=== PATIENT | female | born 1945 | race Caucasian/White ===

== ENCOUNTER 2020-12-23 11:19 | Day surgery (SDC) | payer MEDICARE, BC ==
[~2020-12-23 11:19] MED LIST: Lactated Ringers 1,000 ML IV SCH
[2020-12-23 11:33] VITALS: PULSE 68
[2020-12-23] MEDS ORDERED: fentaNYL 100 MCG/2 ML SDV ONE (12:07)
[2020-12-23] MEDS ORDERED: Propofol 200 MG/20 ML SDV ONE ×3 (12:07→12:36)
[2020-12-23 13:23] VITALS: BP 126/75
--- NOTE | 2020-12-24 08:25 | OR ---
PREOPERATIVE DIAGNOSIS: History of colon polyps. POSTOPERATIVE DIAGNOSIS: History of colon polyps. PROCEDURE PERFORMED: Colonoscopy. COMPLICATIONS: None. SPECIMENS: None. ESTIMATED BLOOD LOSS: None. PROCEDURE IN DETAIL: This was done in the endoscopy suite. Sedation was given per Anesthesia. She was placed in left lateral position. First, a rectal exam was done and was normal. Scope was then introduced into the rectum and slowly advanced through the rectum, sigmoid, descending, transverse, and ascending colon until the cecum was reached. Upon reaching the cecum, scope was slowly withdrawn looking at all mucosal surfaces on the way out. No mucosal abnormalities, lesions, or polyps were noted. FINAL DIAGNOSIS: Normal colonoscopy. BKD: 12/23/2020 13:06:53 MODL: 12/23/2020 20:08:58 /[id number]
== END 2020-12-23 14:20 | disposition home or self-care (01) ==
LOC: VM.SDS 11:19
PROVIDERS: ATTEND Surgery
DX: Z12.11 Encounter for screening for malignant neoplasm of colon (principal); I10 Essential (primary) hypertension; E78.00 Pure hypercholesterolemia, unspecified; K21.9 Gastro-esophageal reflux disease without esophagitis; E03.9 Hypothyroidism, unspecified; Z98.890 Other specified postprocedural states; Z79.899 Other long term (current) drug therapy; Z79.890 Hormone replacement therapy; Z80.0 Family history of malignant neoplasm of digestive organs; Z86.010 Personal history of colon polyps; Z88.8 Allergy status to other drugs, medicaments and biological substances; Z88.5 Allergy status to narcotic agent
CPT/HCPCS: 00811; J2704; J3010; J7120

== ENCOUNTER 2021-02-06 09:11 | Emergency (ER) | payer MEDICARE, BC ==
[2021-02-06 10:01] LABS: CHLORIDE,CL 101 mmol/L (98-107); SODIUM,NA 135 mmol/L (136-145)
--- NOTE | 2021-02-06 10:01 | CR ---
[id number] RAD/RAD Chest PA or AP 1V EXAM: FRONTAL CHEST INDICATION: Shortness of breath and cough. COMPARISON: None. DISCUSSION: Mild bilateral central predominant airspace edema and/or infiltrates. Low lung volumes. Borderline heart size. Tortuous thoracic aorta. IMPRESSION: 1. Mild central infiltrates and/or edema. Renato Gonzalez MD 02/06/21 0959 Thank you for allowing us to participate in the care of your patient.
[2021-02-06 10:02] LABS: ANION GAP 16.5 mmol/L (5-15)
--- NOTE | 2021-02-06 10:15 | EDM.PDOC ---
ED HPI GENERAL MEDICAL PROBLEM - General Chief Complaint: General Stated Complaint: DIZZY AND HARD TO SEE Time Seen by Provider: 02/06/21 09:15 Source of Information: Reports: Patient, Family History Limitations: Reports: No Limitations - History of Present Illness INITIAL COMMENTS - FREE TEXT/NARRATIVE: Patient states over the last couple weeks she does states she has not felt well but here in the last 2 days she has had episodes of nausea with vomiting over the last 3 to 4 days usually 3-4 times a day but she did not vomit any yesterday but a couple times this morning. She states she is having generalized dizziness with generalized weakness kind of a dull headache across the forehead that she rates about 4 out of 10 she also has been having muscle aches and having in termittent episodes of chills. She denies any dizziness with change of position does not feel like the room is spinning she does states that everything feels a little off she is also had some episodes of blurry vision. She says the vision changes last for few seconds and they go away she has had no loss of vision. She denies any chest pain or shortness of breath she has had a cough nonproductive. She has been exposed to secondary Covid but has not been tested. She has a significant history for liver transplant approximately 5 years ago with the [facility] she has had no issues since and currently takes her antirejection meds as scheduled her levels were good as of November Duration: Day(s):, Week(s): Associated Symptoms: Reports: Cough, Fever/Chills, Malaise, Nausea/Vomiting, Weakness. Denies: Confusion, Chest Pain, Shortness of Breath - Related Data Allergies Allergy/AdvReac Type Severity Reaction Status Date / Time benazepril [From Lotensin] Allergy Cough Verified 02/20/16 13:15 irbesartan [From Avapro] Allergy Nausea and Verified 11/06/20 08:28 Vomiting NSAIDS (Non-Steroidal Allergy Other Verified 11/06/20 08:28 Anti-Inflamma oxycodone Allergy Nausea and Verified 02/20/16 13:15 Vomiting Home Meds: Home Meds Acetaminophen [Tylenol] 650 mg PO Q6HR PRN 02/20/16 [History] Aspirin 81 mg PO DAILY 02/20/16 [History] Calcium Citrate/Vitamin D3 [Calcium Citrate - Vit D Tablet] 1 tab PO BID 02/20/16 [History] Losartan Potassium 25 mg PO DAILY 02/20/16 [History] Multivitamin with Minerals [Multiple Vitamin] 1 tab PO DAILY 02/20/16 [History] Pantoprazole Sodium [Protonix] 1 tab PO BID 02/20/16 [History] Tacrolimus [Envarsus Xr] 2 tab BID 02/20/16 [History] mycophenolate mofetiL [Mycophenolate Mofetil] 500 mg PO BID 02/20/16 [History] Levothyroxine 175 mcg PO ACBREAKFAST 11/06/20 [History] Past Medical History HEENT History: Reports: Other (See Below) Other HEENT History: tear film insufficiency Cardiovascular History: Reports: High Cholesterol, Hypertension, Other (See Below) Other Cardiovascular History: valvular heart disease Respiratory History: Reports: Other (See Below) Other Respiratory History: [id number] defeciency Gastrointestinal History: Reports: Colon Polyp, GERD, Hiatal Hernia, Other (See Below) Other Gastrointestinal History: s/p liver transplant. steatohepatitis. heptorenal syndrome Other Genitourinary History: ovarian cyst. renal insufficieny post liver transplant requiring dialysis twice while still hospitalized in September Musculoskeletal History: Reports: Osteoporosis Neurological History: Reports: Other (See Below) Other Neuro History: cognitive dysfunction Psychiatric History: Reports: None Endocrine/Metabolic History: Reports: Hypothyroidism, Obesity/BMI 30+ Hematologic History: Reports: Other (See Below) Other Hematologic History: [id number] deficiency Immunologic History: Reports: Solid Organ Transplant, Other (See Below) Other Immunologic History: S/P LIVER TRANSPLANT, [id number] DEFICIENCY Oncologic (Cancer) History: Reports: None Dermatologic History: Reports: None - Past Surgical History Musculoskeletal Surgical History: ED ROS GENERAL - Review of Systems Review Of Systems: See Below Constitutional: Reports: Fever, Chills, Malaise, Weakness. Denies: Diaphoresis HEENT: Reports: Vision Change. Denies: Eye Pain, Hearing Loss, Rhinitis, Throat Pain Respiratory: Reports: Cough Cardiovascular: Reports: Lightheadedness. Denies: Chest Pain, Blood Pressure Problem, Dyspnea on Exertion, Edema, Palpitations, Syncope Endocrine: Reports: Fatigue GI/Abdominal: Reports: Diarrhea, Nausea, Vomiting, Other (She states the diarrhea is usually 2 or 3 times a day with loose bowel movement) : Reports: No Symptoms Musculoskeletal: Reports: Muscle Pain Skin: Reports: No Symptoms Neurological: Reports: Dizziness, Headache, Weakness. Denies: Confusion, Numbness, Pre-Existing Deficit, Seizure, Syncope, Tingling, Trouble Speaking, Difficulty Walking, Change in Speech, Gait Disturbance Psychiatric: Reports: No Symptoms Hematologic/Lymphatic: Reports: No Symptoms Immunologic: Reports: No Symptoms ED EXAM, GENERAL - Physical Exam Exam: See Below Exam Limited By: No Limitations General Appearance: Alert, WD/WN, No Apparent Distress Eye Exam: Bilateral Eye: EOMI, Normal Inspection, PERRL, Other (No noticed nystagmus) Ears: Normal External Exam, Normal Canal, Hearing Grossly Normal, Normal TMs Nose: Normal Inspection, Normal Mucosa, No Blood Throat/Mouth: Normal Inspection, Normal Lips, Normal Teeth, Normal Gums, Normal Oropharynx, Normal Voice, No Airway Compromise Head: Atraumatic, Normocephalic Neck: Normal Inspection, Supple, Non-Tender, Full Range of Motion. No: Limited Range of Motion, Lymphadenopathy (L), Lymphadenopathy (R) Respiratory/Chest: No Respiratory Distress, Lungs Clear, Normal Breath Sounds, No Accessory Muscle Use, Chest Non-Tender Cardiovascular: Normal Peripheral Pulses, Regular Rate, Rhythm, No Edema, No Gallop, No JVD, No Murmur, No Rub GI/Abdominal: Normal Bowel Sounds, Soft, Non-Tender, No Organomegaly, No Distention, No Abnormal Bruit Back Exam: Full Range of Motion Extremities: Normal Inspection, Normal Range of Motion, Non-Tender, No Pedal Edema, Normal Capillary Refill, Other (Patient has full range of motion equal fur repairer bilateral 5/5 upper extremity lower extremity strength) Neurological: Alert, Oriented, CN II-XII Intact, Normal Cognition, Normal Gait, Normal Reflexes, No Motor/Sensory Deficits, Sensory/Motor Deficit, Other (Equal soft touch sensation face equal fur repairer negative pronator sway) Psychiatric: Normal Affect Skin Exam: Warm, Dry, Intact, Normal Color, No Rash Lymphatic: No Adenopathy Course - Vital Signs Text/Narrative:: CBC CMP EKG chest x-ray Covid and flu urinalysis pt covid vacs x 2 with booster CBC normal white count normal H&H Mildly elevated BUN and creatinine Positive for Covid Chest x-ray positive infiltrates right hilar area per report though possible edema or infiltrates I will treat as a pneumonia secondary to Covid Patient's vital signs amanda 94% room air are stable we will plan on discharging home Patient given Zithromax Z-Chaim x5 days Decadron 4 mg 2 tablets every day for 3 days Zofran 4 mg 1 every 4 to 6 as needed #30 Albuterol inhaler 1 to 2 puffs every 4 to 6 hours dispense #1 Last Recorded V/S: Last Vital Signs Temp 36.6 C 02/06/21 09:20 Pulse 79 02/06/21 09:20 Resp 17 02/06/21 09:20 BP 108/64 02/06/21 09:20 Pulse Ox 91 L 02/06/21 09:20 - Orders/Labs/Meds Orders: Active Orders 24 hr Category Date Time Status EKG Documentation Completion [RC] URGENT Care 02/06/21 09:42 Active UA W/MICROSCOPIC [URIN] Stat Lab 02/06/21 09:45 Ordered Labs: Laboratory Tests 02/06/21 02/06/21 02/06/21 Range/Units 09:22 09:22 09:27 WBC 3.7 L (4.0-10.0) x10^3/uL RBC 4.83 (4.00-5.50) x10^6/uL Hgb 13.8 (12.0-16.0) g/dL Hct 42.0 (33.0-47.0) % MCV 87.0 (78.0-93.0) fL MCH 28.6 (26.0-32.0) pg MCHC 32.9 (32.0-36.0) g/dL RDW Coeff of Norbert 13.8 (10.0-15.0) % Plt Count 142 (130-400) x10^3/uL Immature Gran % (Auto) 1.30 H (0.00-0.43) % Neut % (Auto) 74.4 (50.0-80.0) % Lymph % (Auto) 12.7 L (25.0-50.0) % [place] % (Auto) 11.6 H (2.0-11.0) % Eos % (Auto) 0.0 (0.0-4.0) % Baso % (Auto) 0.0 L (0.2-1.2) % Neut # (Auto) 2.8 (1.8-7.7) x10^3/uL Lymph # (Auto) 0.5 L (1.0-4.8) x10^3/uL [place] # (Auto) 0.4 (0.0-0.8) x10^3/uL Eos # (Auto) 0.0 (0.0-0.5) x10^3/uL Baso # (Auto) 0.0 (0.0-0.2) x10^3/uL Immature Gran # (Auto) 0.05 (0.00-0.07) x10^3/uL Sodium 135 L (136-145) mmol/L Potassium 4.5 (3.5-5.1) mmol/L Chloride 101 (98-107) mmol/L Carbon Dioxide 22 (21-32) mmol/L Anion Gap 16.5 H (5-15) mmol/L BUN 21 H (7-18) mg/dL Creatinine 1.4 H (0.55-1.02) mg/dL Est Cr Clr Drug Dosing TNP Estimated GFR (MDRD) 37 Glucose 103 H (70-99) mg/dL Calcium 8.4 L (8.5-10.1) mg/dL Corrected Calcium 9.0 (8.5-10.1) mg/dL Total Bilirubin 0.3 (0.2-1.0) mg/dL AST 32 (15-37) U/L ALT 30 (14-59) U/L Alkaline Phosphatase 76 (46-116) U/L Total Protein 6.0 L (6.4-8.2) g/dL Albumin 3.2 L (3.4-5.0) g/dL Globulin 2.8 Albumin/Globulin Ratio 1.14 Influenza Type A RNA Negative (NEGATIVE) Influenza Type B RNA Negative (NEGATIVE) SARS-CoV-2 RNA (MIGUELANGEL) Positive H (NEGATIVE) Departure - Departure Time of Disposition: 11:00 Disposition: Home, Self-Care 01 Condition: Good Clinical Impression: COVID, Dizziness, Nausea and vomiting, Pulmonary infiltrates on CXR - Discharge Information *PRESCRIPTION DRUG MONITORING PROGRAM REVIEWED*: No *COPY OF PRESCRIPTION DRUG MONITORING REPORT IN PATIENT ED: No Referrals: PCP,Not In Area [Primary Care Provider] - Forms: ED Department Discharge Sepsis Event Note (ED) - Focused Exam Vital Signs: Vital Signs Temp Pulse Resp BP Pulse Ox 02/06/21 09:20 36.6 C 79 17 108/64 91 L - Problem List & Annotations (1) Pulmonary infiltrates on CXR SNOMED Code(s): 432100249, 295966634 Code(s): R91.8 - OTHER NONSPECIFIC ABNORMAL FINDING OF LUNG FIELD Status: Acute Current Visit: Yes - My Orders Last 24 Hours: My Active Orders 02/06/21 09:42 EKG Documentation Completion [RC] URGENT 02/06/21 09:45 UA W/MICROSCOPIC [URIN] Stat - Assessment/Plan Last 24 Hours: My Active Orders 02/06/21 09:42 EKG Documentation Completion [RC] URGENT 02/06/21 09:45 UA W/MICROSCOPIC [URIN] Stat
[2021-02-06 10:28] LABS: CORONAVIRUS COVID-19 NAA POSITIVE (NEGATIVE)
[2021-02-06 11:01] VITALS: BP 108/64; PULSE 79
[2021-02-06] MEDS ORDERED: Azithromycin 250 MG Tab PO ONE (11:07)
== END 2021-02-06 11:45 | disposition home or self-care (01) ==
LOC: VM.ED 09:11
DX: R42 Dizziness and giddiness (principal); R11.2 Nausea with vomiting, unspecified; U07.1 COVID-19; E78.00 Pure hypercholesterolemia, unspecified; I10 Essential (primary) hypertension; K21.9 Gastro-esophageal reflux disease without esophagitis; E03.9 Hypothyroidism, unspecified; E66.9 Obesity, unspecified; Z68.30 Body mass index [BMI] 30.0-30.9, adult; R91.8 Other nonspecific abnormal finding of lung field; Z88.5 Allergy status to narcotic agent; Z88.8 Allergy status to other drugs, medicaments and biological substances
CPT/HCPCS: 0240U; 71045; 80053; 85025; 99285; A9270